=== PATIENT | male | born 1965 | race Caucasian/White ===

== ENCOUNTER 2017-08-24 19:14 | Emergency (ER) | payer SELFPAY ==
[2017-08-24 19:19] VITALS: BP 155/78; PULSE 85; RESP 20; TEMP 98.4
[2017-08-24] MEDS ORDERED: PRAS10TA PO (19:57)
[2017-08-24] MEDS ORDERED: ATOR40TA16 PO (19:57)
[2017-08-24] MEDS ORDERED: METO25TA3 PO (19:57)
[2017-08-24] MEDS ORDERED: ASPI-516 CHEW (19:57)
[2017-08-24] MEDS ORDERED: ZOLO50TA PO (19:57)
[2017-08-24] MEDS ORDERED: CEPH-460 PO (20:26)
--- NOTE | 2017-08-24 20:26 | PD ---
HPI Chief Complaint: Laceration/Skin Injury Time Seen by Provider: 20:22 Travel History International Travel<30 days: No Contact w/Intl Traveler<30days: No Traveled to known affect area: No History of Present Illness HPI 51-year-old male presents to emergency department laceration to his left middle finger that occurred just prior to arrival. Patient states that he was whittling and accidentally cut his finger resulting in a laceration. Patient denies numbness or tingling and has full range of motion. Patient denies weakness of the finger. States the pain is mild. States that she is on a blood thinner. PFSH Past Medical History Hx Anticoagulant Therapy: Yes (EFFIENT) Depression: Yes High Cholesterol: Yes Hypertension: Yes Myocardial Infarction: Yes Past Surgical History Cardiac Surgery: Yes (STENT) Other Surgery: Yes (L5S1 DISCECTOMY) Social History Alcohol Use: Yes Tobacco Use: No Substance Use: No Allergies-Medications (Allergen,Severity, Reaction): Coded Allergies: No Known Allergies (Unverified , 08/24/17) Reported Meds & Prescriptions Reported Meds & Active Scripts Active Keflex (Cephalexin) 500 Mg Cap 500 Mg PO Q12H 7 Days Reported Zoloft (Sertraline HCl) 50 Mg Tab 50 Mg PO DAILY Aspirin 81 Mg Chew 81 Mg CHEW DAILY Metoprolol Tartrate 25 Mg Tab 25 Mg PO DAILY Atorvastatin (Atorvastatin Calcium) 40 Mg Tab 40 Mg PO HS Effient (Prasugrel) 10 Mg Tab 10 Mg PO DAILY Review of Systems Except as stated in HPI: all other systems reviewed are Neg Physical Exam Narrative GENERAL: Well-nourished, well-developed patient. SKIN: Focused skin assessment warm/dry. HEAD: Normocephalic. EYES: No scleral icterus. No injection or drainage. NECK: Supple, trachea midline. No JVD or lymphadenopathy. MUSCULOSKELETAL: No cyanosis, or edema. Left middle finger- dorsal aspect of distal phalanx 1-2cm laceration, not grossly contaminated. Neurovascularly intact. BACK: Nontender without obvious deformity. No CVA tenderness. NEUROLOGICAL: Awake and alert. Motor and sensory grossly within normal limits. Five out of 5 muscle strength in all muscle groups. Normal speech. Data Data Last Documented VS Vital Signs Date Time Temp Pulse Resp B/P (MAP) Pulse Ox O2 Delivery O2 Flow Rate FiO2 08/24/17 19:19 98.4 85 20 155/78 (103) Orders Orders Ed Discharge Order (08/24/17 21:03) [facility] Medical Decision Making Medical Screen Exam Complete: Yes Emergency Medical Condition: Yes Differential Diagnosis Left middle finger laceration, avulsion, abrasion Narrative Course 51-year-old male presents to emergency department laceration to his left middle finger that occurred just prior to arrival. Patient states that he was whittling and accidentally cut his finger resulting in a laceration. Patient denies numbness or tingling and has full range of motion. Patient denies weakness of the finger. States the pain is mild. States that he is on a blood thinner. He is from [place] and is visiting for another 5 days. Vital signs stable Physical exam findings consistent with a laceration to the left middle finger. No tendon or ligamental involvement. Neurovascularly intact. Laceration repair with 5-0 Prolene. Patient will be prescribed Keflex for antibiotic prophylaxis. Advised on wound care. Suture removal in 7-10 days. Patient to follow-up with primary care physician upon return to his home state. Return to the emergency room for worsening or persistent symptoms. Advised to watch for signs of infection. Procedures Procedure Narrative LACERATION LOCATION: Left middle finger, dorsal aspect of middle phalanx LENGTH: 1-2cm NUMBER OF STITCHES/LAZARO: 3 REPAIR: The area of the laceration was prepped with Betadine and sterilely draped. The laceration was infiltrated with 1% lidocaine without epinephrine in addition to a digital block. The wound was copiously irrigated and explored without evidence of foreign body, tendon injury or neurovascular injury. The wound was closed using 5-0 prolene. This was a single layer repair. A sterile dressing was applied. The patient was advised to keep the dressing clean and dry. Patient tolerated the procedure well. Diagnosis Primary Impression: Finger laceration Qualified Codes: S61.213A - Laceration without foreign body of left middle finger without damage to nail, initial encounter Referrals: Hand Surgeon Primary Care Physician Additional Instructions: Follow up with your primary care physician within 2-3 days. If your symptoms persist or worsen, return to the emergency department. Keep area clean and dry. You may use [id number] triple antibiotic ointments Change dressings daily. If bleeding starts again, applied pressure and elevate the area. If he developed increased redness, swelling, or pain return to the emergency department. Scripts Cephalexin (Keflex) 500 Mg Cap 500 MG PO Q12H for Infection for 7 Days, #14 CAP 0 Refills Prov: Judy Sánchez 08/24/17 Disposition: 01 DISCHARGE HOME Condition: Stable Judy Sánchez Aug 24, 2017 20:26
== END 2017-08-24 21:15 | disposition home or self-care (01) ==
LOC: PHEFT 19:14
DX: S61.213A Laceration without foreign body of left middle finger without damage to nail, initial encounter (principal); W26.0XXA Contact with knife, initial encounter; E78.00 Pure hypercholesterolemia, unspecified; I10 Essential (primary) hypertension; F32.9 Major depressive disorder, single episode, unspecified; I25.2 Old myocardial infarction; Z79.01 Long term (current) use of anticoagulants
CPT/HCPCS: 12001